=== PATIENT | female | born 1970 | race Caucasian/White ===

== ENCOUNTER 2016-09-24 05:23 | Observation (INO) | payer OTHER ==
[~2016-09-24] VITALS: Ht 162.6 cm; Wt 110.6 kg
[2016-09-24 05:29] VITALS: BP 167/75; PULSE 101; RESP 20; TEMP 98; O2SAT 98
[2016-09-24] MEDS ORDERED: METOPROLOL TARTRATE 25 MG TAB PO PRN (06:00)
[2016-09-24] MEDS ORDERED: SODIUM CHLORID 0.9% 500 ML IV SCH (06:00)
[2016-09-24] MEDS ORDERED: INSULIN HUMAN REGULAR 1,000 UNITS/10 ML VIAL SQ PRN (06:00)
[2016-09-24] MEDS ORDERED: LACTATED RINGER'S 1000 ML IV SCH (06:00)
[2016-09-24] MEDS ORDERED: ceFAZolin 2 GM PREMIX 50 ML IV SCH (06:00)
[2016-09-24] MEDS ORDERED: DEXAMETHASONE SOD PHOS 4 MG/ML VIAL ONE (07:08)
[2016-09-24] MEDS ORDERED: ACETAMINOPHEN 1000 MG/100 ML VIAL IV ONE (07:08)
[2016-09-24] MEDS ORDERED: FAMOTIDINE 20 MG/2 ML VIAL ONE (07:08)
[2016-09-24] MEDS ORDERED: MIDAZOLAM HCL 2 MG/2 ML VIAL ONE (07:08)
[2016-09-24] MEDS ORDERED: LIDOCAINE 1%/EPINEPHrine 1:100,000 SOLN 20 ML VIAL ONE (07:14)
[2016-09-24] MEDS ORDERED: EPINEPHrine HCL (1:1000) 1 MG/ML VIAL ONE ×2 (07:14→09:18)
[2016-09-24] MEDS ORDERED: SODIUM BICARBONATE 8.4% INJ 50 ML ONE (07:15)
[2016-09-24] MEDS ORDERED: fentaNYL CITRATE 250 MCG/5 ML AMP ONE ×2 (09:46→13:05)
[2016-09-24] MEDS ORDERED: NEOSTIGMINE 3 MG/3 ML SYR IV ONE (12:00)
[2016-09-24] MEDS ORDERED: PROPOFOL 200 MG/20 ML AMP IV ONE (12:00)
[2016-09-24] MEDS ORDERED: oxyCODONE/ACETAMINOPHEN 7.5 MG/325 MG TAB PO PRN (12:00)
[2016-09-24] MEDS ORDERED: PROMETHAZINE HCL 25 MG TAB PO PRN (12:00)
[2016-09-24] MEDS ORDERED: LACTATED RINGER'S 1000 ML INJ 2,000 ML IV ONE (12:00)
[2016-09-24] MEDS ORDERED: ONDANSETRON HCL 4 MG/2 ML VIAL IV PUSH ONE ×2 (12:00→13:30)
[2016-09-24] MEDS ORDERED: DO NOT ADM ANY ANTICOAGULANT DRUGS XX PRN (12:15)
[2016-09-24] MEDS ORDERED: *ONDANSETRON 4 MG VIAL PERIprocedural Use ONLY ONE (12:23)
[2016-09-24] MEDS ORDERED: *morphine SULFATE 8 MG/ML PERIprocedure ONLY ONE ×2 (12:35→12:54)
[2016-09-24] MEDS ORDERED: MORPHINE SULFATE 4 MG/ML INJ ONE (13:05)
[2016-09-24 13:30] VITALS: BP 154/80; PULSE 102; RESP 16; TEMP 96.6; O2SAT 97
[2016-09-24] MEDS: ceFAZolin 1,000 MG/NS 100 ML IV SCH ×4 (14:00→22:51)
[2016-09-24] MEDS: HYDROmorphone HCL PF 1 MG/ML VIAL IV PRN ×3 (14:08→22:51)
[2016-09-24] MEDS ORDERED: PROMETHAZINE INJ 25 MG/ML VIAL IM PRN (15:45)
[2016-09-24 16:00] VITALS: BP 149/79; PULSE 91; RESP 20; TEMP 97.6; O2SAT 94
[2016-09-24 20:00] VITALS: BP 107/71; PULSE 75; RESP 16; O2SAT 96
[2016-09-24] MEDS: LACTATED RINGER'S 1000 ML INJ 1,000 ML IV SCH (22:00)
[2016-09-25] VITALS: BP 135/75; PULSE 93; RESP 18; TEMP 97; O2SAT 96
[2016-09-25] MEDS: LACTATED RINGER'S 1000 ML INJ 1,000 ML IV SCH ×2 (00:11→11:02)
[2016-09-25 04:15] VITALS: BP 106/51; PULSE 85; RESP 16; TEMP 96.7; O2SAT 97
[2016-09-25] MEDS: HYDROmorphone HCL PF 1 MG/ML VIAL IV PRN ×2 (04:34→09:01)
[2016-09-25 08:00] VITALS: BP 128/59; PULSE 80; RESP 16; TEMP 96.8; O2SAT 97
--- NOTE | 2016-09-25 11:30 | PD.PLAS.PN ---
Subjective Remarks Patient doing very well In good spirits. happy Pain mild. Not having any nausea now. Breasts soft to touch. No hematoma. Good volume and symmetry overall. OK to discharge today OK to shower and redress as desired. Friday in [facility] clinic Has all the prescriptions filled at home. Vital Signs Date Time Temp Pulse Resp B/P Pulse Ox O2 Delivery O2 Flow Rate FiO2 09/25/16 08:00 96.8 80 16 128/59 97 09/25/16 04:15 96.7 85 16 106/51 97 09/25/16 00:00 97.0 93 18 135/75 96 09/24/16 20:00 75 16 107/71 96 09/24/16 16:00 97.6 91 20 149/79 94 09/24/16 13:30 96.6 102 16 154/80 97 09/24/16 13:15 98 16 148/79 98 Nasal Cannula 3 09/24/16 13:00 97.8 96 16 153/87 99 Nasal Cannula 3 09/24/16 12:45 102 15 152/69 99 Nasal Cannula 3 09/24/16 12:30 99 15 173/94 99 Nasal Cannula 3 09/24/16 12:19 97.8 109 15 167/83 95 Nasal Cannula 3 I/O 09/24/16 09/24/16 09/24/16 09/25/16 09/25/16 09/25/16 07:00 15:00 23:00 07:00 15:00 23:00 Intake Total 2800 ml 1560 ml 1800 ml Output Total 725 ml 420 ml 1050 ml Balance 2075 ml 1140 ml 750 ml Intake Oral 1560 ml 240 ml IV Total 600 ml 1560 ml Other 2200 ml Output Urine Total 625 ml 400 ml 1050 ml Drainage Total 20 ml Estimated Blood Loss 100 ml Faustino Alexis MD Sep 25, 2016 11:30
--- NOTE | 2016-09-26 13:02 | MP ---
cc: ABHIJIT ALEXIS M.D. DATE OF SURGERY 09/24/2016 PREOPERATIVE DIAGNOSIS Bilateral macromastia with mild asymmetry, left axillary roll larger than right. POSTOPERATIVE DIAGNOSIS Bilateral macromastia with mild asymmetry, left axillary roll larger than right. OPERATION Bilateral reduction mammoplasty. SURGEON Dr. Alexis ANESTHESIA General. INDICATIONS This is a 46-year-old white female with bilaterally large breasts for a very long time. She desired elective breast reduction. She has had seven pregnancies, seven children and the breast size is approximately 1500 grams each. The patient has slightly more fullness to her left axillary tail and axillary fold compared to right. The breast has glandular ptosis, grade 3. She underwent detailed explanation of the procedure, pros, cons, risks, complications, particularly the possibility of the breast flap and breast tissue vascular issues after surgery may need debridements, open wound care treatment, further surgeries, some asymmetry may remain and nipple-areolar sensation may be lost. Other general issues such as bleeding, infection, wound dehiscence, keloids were also discussed and she is agreeable to go ahead with the surgery. She is looking forward to the surgery to reduce the weight of her breasts. PROCEDURE The patient was brought to the operating room, was given supine position. Anesthesia was started. Prep and drape was done. IV antibiotic had been given. The time-out was called and completed. Preoperative markings were reinforced. The tumescent solution of saline/lidocaine with epi and additional epinephrine was used. The inferior pedicle design was tumesced in the epidermis. It was deepithelialized, deepithelializing completely towards the anterior axillary line on the lateral fold and approximately to within 1 inch of the medial breast location. The upper flaps were developed after using the hydrodissection with tumescent solution as well. The breast tissue was reduced taking out the lateral and medial skin triangles and then taking them down to the chest wall. Laterally the reduction was carried from the farthest lateral position to the anterior axillary line along the chest wall and then the dermal flap was undermined to a similar distance and the breast tissue in between was dissected. The dissection was also continued in a circular fashion in the lateral upper quadrant. A small portion of the upper medial quadrant was also taken down to the chest wall, creating a somewhat rounded breast mound. The dermal flap on the lateral aspect was tacked to the chest wall along the anterior axillary line. The dermal flap on the medial and upper were loosely approximated to provide better breast mound and more medial position of the nipple as well. The hemostasis was completed. Carlitos-Roldan drains were used on both sides. The triangular flaps were brought to the center point, approximately equal distance from the midline and providing good breast mounds on both sides. Nipple-areolar complexes were exteriorized, taking a 6-cm distance for the areolar lower border and 13-cm from the midline on both sides. Suturing was done with Vicryl and Prolene sutures, subcuticular running Prolene. All the areas were cleaned, dried and sterile dressing was applied. Drains were secured and activated. The patient remained stable. Intraoperative blood loss approximately 100 cc. The total tissue removed on the right side was approximately 625 grams, on the left side it was close to 700 grams, particularly because of the midaxillary tissue rather than the breast tissue itself. Overall the symmetry and volume was excellent. No complications. signed, not fully reviewed MD MARCE Berry/SSB /11:07 AM /12:51 PM ASHLY
== END 2016-09-25 13:10 | disposition home or self-care (01) ==
LOC: HSDC 05:23 → HOCB 11:11
PROVIDERS: ADMIT Plastic Surgery; ATTEND Plastic Surgery
DX: N62 Hypertrophy of breast (principal)
CPT/HCPCS: 00402; 19318; 88305; G0378; J0131; J0171; J0690; J1100; J1170; J2250; J2270; J2405; J2550; J2710; J3010; J7120; Q0169

== ENCOUNTER → 2017-10-06 | Outpatient (CLI) | payer OTHER ==
--- NOTE | 2017-10-08 01:17 | EKG ---
Date Performed: 10/06/2017 Time Performed: 13:26:36 PTAGE: 47 years EKG: Sinus bradycardia. Poor R wave progression - probable normal variant Inferior and septal T wave changes are nonspecific Borderline ECG PREVIOUS TRACING : 02/18/2004 21.23 Since the prior tracing, there has been no significant woodall DOCTOR: Dominic Huffman Interpretating Date/Time 10/08/2017 01:14:59
== END ==
LOC: HCAV 13:20
PROVIDERS: ATTEND Orthopaedic Surgery Orthopaedic Surgery of the Spine
DX: Z01.810 Encounter for preprocedural cardiovascular examination (principal)
CPT/HCPCS: 93005